=== PATIENT | female | born 1975 | race Two or more races ===

== ENCOUNTER → 2017-05-19 | Outpatient (CLI) | payer OTHER ==
[2017-05-19 12:43] LABS: BASOPHILS % (AUTO) 0.4 % (0.0-2.0); EOSINOPHILS % (AUTO) 0.1 % (1.0-6.0); HEMATOCRIT 37.3 % (36-46); HEMOGLOBIN 12.6 g/dL (12.0-16.0); LYMPHOCYTES # (AUTO) 1.2 K/uL (1.0-4.8); LYMPHOCYTES % (AUTO) 10.2 % (22.0-44.0); MEAN CORPUSCULAR HEMOGLOBIN 31.2 pg (26.0-34.0); MEAN CORPUSCULAR HGB CONC 33.7 G/dL (31.0-37.0); MEAN CORPUSCULAR VOLUME 92 fL (80-100); MONOCYTES # (AUTO) 0.6 K/uL (0.1-1.0); MONOCYTES % (AUTO) 4.9 % (2.0-9.0); NEUTROPHILS # (AUTO) 9.9 K/uL (1.8-7.7); NEUTROPHILS % (AUTO) 84.4 % (40.0-70.0); PLATELET COUNT (AUTO) 264 K/uL (150-450); RED BLOOD CELL COUNT(AUTO) 4.04 MIL/uL (4.00-5.20); RED CELL DISTRIBUTION WIDTH 14.4 % (11.5-14.5)
[2017-05-19 16:52] LABS: RAPID PLASMA REAGIN NONREACTIVE (NONREACTIVE); RUBELLA SCREEN (IGG) IMMUNE (IMMUNE)
[2017-05-20 12:17] LABS: HIV 1-2 SCREEN 4TH GEN W/RFLX Non Reactive (Non Reactive)
== END | disposition home or self-care (01) ==
LOC: LABPV 11:18
PROVIDERS: ATTEND Obstetrics & Gynecology Gynecology
DX: O23.41 Unspecified infection of urinary tract in pregnancy, first trimester (principal); Z11.3 Encounter for screening for infections with a predominantly sexual mode of transmission; Z3A.00 Weeks of gestation of pregnancy not specified
CPT/HCPCS: 86592; 86762; 86803; 86850; 86900; 86901; 87086; 87340; 87389; 87491; 87591

== ENCOUNTER → 2017-07-27 | Outpatient (CLI) | payer OTHER | END | disposition home or self-care (01) | LOC: LABPV 09:23 | PROVIDERS: ATTEND Obstetrics & Gynecology Gynecology | DX: Z34.02 Encounter for supervision of normal first pregnancy, second trimester (principal); Z3A.00 Weeks of gestation of pregnancy not specified | CPT/HCPCS: 82947 ==

== ENCOUNTER → 2017-08-06 | Outpatient (CLI) | payer OTHER | END | disposition home or self-care (01) | LOC: LABPV 07:41 | PROVIDERS: ATTEND Obstetrics & Gynecology Gynecology | DX: Z34.03 Encounter for supervision of normal first pregnancy, third trimester (principal); Z3A.00 Weeks of gestation of pregnancy not specified | CPT/HCPCS: 82951; 82952 ==

== ENCOUNTER 2017-10-02 00:57 | Observation (INO) | payer OTHER ==
[~2017-10-02] VITALS: Ht 154.9 cm; Wt 55.6 kg
[2017-10-02] MEDS ORDERED: PRENATAL VIT PO (02:06)
[2017-10-02] MEDS ORDERED: FOLIC ACID PO (02:07)
[2017-10-02 02:08] VITALS: BP 103/65
== END 2017-10-02 06:30 | disposition home or self-care (01) ==
LOC: 4S 00:57
PROVIDERS: ADMIT Obstetrics & Gynecology Gynecology; ATTEND Obstetrics & Gynecology Gynecology
DX: O62.9 Abnormality of forces of labor, unspecified (principal); O99.89 Other specified diseases and conditions complicating pregnancy, childbirth and the puerperium; M54.9 Dorsalgia, unspecified; O26.893 Other specified pregnancy related conditions, third trimester; R10.9 Unspecified abdominal pain; O09.523 Supervision of elderly multigravida, third trimester; Z3A.38 38 weeks gestation of pregnancy
CPT/HCPCS: 59025; G0378